=== PATIENT | female | born 1940 | race Caucasian/White ===

== ENCOUNTER 2017-05-24 23:01 | Inpatient (IN) | payer MEDICARE ==
[2017-05-24] MEDS ORDERED: Pantoprazole 40 MG VIAL ONE (23:30)
[2017-05-24] MEDS ORDERED: Ondansetron HCl/PF 4 MG/2 ML Vial ONE (23:30)
[2017-05-24 23:34] LABS: #Basophils 0.1 thou/uL (0.0-0.2); #Lymphocytes 1.3 thou/uL (1.20-3.40); #Monocytes 0.6 thou/uL (0.11-0.59); #Neutrophils 7.3 thou/uL (1.40-6.50); %Eosinophils 0.4 % (0.0-10.0); %Lymphocytes 13.6 % (21.0-51.0); %Monocytes 6.4 % (0.0-10.0); %Neutrophils 78.6 % (42.0-75.0); Hemoglobin 15.9 g/dL (12.0-16.0); Mean Corpuscular HGB CONC 34.3 g/dL (32.0-36.0); Mean Corpuscular Hemoglobin 31.4 pg (27.0-31.0); Mean Corpuscular Volume 91.7 fl (81.0-99.0); Mean Platelet Volume 11.3 fL (7.4-10.4); Platelet Count 173 thou/uL (130-400); RBC Distribution Width 12.2 % (11.5-14.5); Red Blood Cell (RBC) Count 5.07 mill/uL (4.20-5.40); White Blood Cell (WBC) Count 9.3 thou/uL (4.8-10.8)
[2017-05-24 23:47] LABS: ALT (SGPT) 18 U/L (8-55); AST (SGOT) 21 U/L (5-34); Albumin 4.4 g/dL (3.4-4.8); Alkaline Phosphatase 97 U/L (40-150); Anion Gap 17 mmol/L (10-20); BUN (Urea Nitrogen) 21 mg/dL (9.8-20.1); Bilirubin, Total 0.5 mg/dL (0.2-1.2); CK (CPK) 79 U/L (29-168); Calc. Creatinine Clearance 0 mL/min (70-130); Calcium 9.9 mg/dL (7.8-10.44); Carbon Dioxide 24 mmol/L (23-31); Chloride 106 mmol/L (98-107); Estimated GFR-MDRD 61; Glucose 136 mg/dL (83-110); Lipase 23 U/L (8-78); Potassium 4.7 mmol/L (3.5-5.1); Protein, Total 7.4 g/dL (6.0-8.3); Sodium 142 mmol/L (136-145)
[2017-05-24 23:50] LABS: CKMB 1.9 ng/mL (0-6.6); Troponin I Less than 0.010 ng/mL (< 0.028)
[2017-05-25] MEDS ORDERED: Morphine 10 MG/ML VIAL ONE (00:26)
[2017-05-25 01:30] LABS: Bilirubin Negative (Negative); Blood, Urine Negative (Negative); Clarity Slightly Cloudy (Clear); Glucose, Urine (Dipstick) Negative (Negative); Leukocyte Negative (Negative); Nitrite Negative (Negative); Protein, Urine (Dipstick) 30 mg/dL (Neg-Trace)
[2017-05-25 01:36] LABS: Bacteria/HPF Rare-Few HPF (None Seen); Hyaline Casts/LPF NONE SEEN LPF (0-3 Hyaline); RBC/HPF 0-3 HPF (0-3); Squamous Epithelial 0-3 HPF (0-3); WBC/HPF 0-3 HPF (0-3)
[2017-05-25] MEDS ORDERED: Ondansetron HCl/PF 4 MG/2 ML Vial IVP PRN ×2 (03:52→15:57)
[2017-05-25] MEDS ORDERED: Ondansetron ODT 4 MG TAB SL PRN (03:52)
[2017-05-25] MEDS ORDERED: Dextrose 5 %-0.45 % NaCl 1,000 ML IV SCH (04:00)
[2017-05-25 06:45] VITALS: BMI 23.5
--- NOTE | 2017-05-25 08:09 | CT ---
PRELIMINARY REPORT/[facility]/EMERGENCY AFTER HOURS PROCEDURE: EXAM: CT Abdomen and Pelvis With Intravenous Contrast 05/25/2017 at 0108 CLINICAL HISTORY: 77 years old, female; Abdominal pain; stomach pain for the past x 3 hours. nausea, and normal bm's. a bdominal distention. TECHNIQUE: Axial computed tomography images of the abdomen and pelvis with intravenous contrast. Coronal reforma tted images were created and reviewed. CONTRAST: 85 mL of [id number] administered intravenously. COMPARISON: None. FINDINGS: Lung bases: Lower lungs show mild, subsegmental atelectasis and/or scar. Partially-imaged, right middle lobe medial segment atelectasis. Mediastinum: Possible, small, hiatal hernia. ABDOMEN: Liver: Unremarkable. Gallbladder and bile ducts: Unremarkable. Pancreas: Unremarkable. Spleen: Unremarkable. Adrenals: Unremarkable. Kidneys and ureters: Unremarkable. Stomach and bowel: Stomach is moderately distended. Multiple, gas- and fluid-filled, moderately-dilated, small bowel loops in lower abdomen/pelvis with a insurance sales representative small bowel measuring 3.5 cm diameter (axial series , image 46). Nondilated large bowel. Multiple diverticula in sigmoid colon without evidence of inflammation. Appendix: No findings to suggest acute appendicitis. PELVIS: Bladder: Unremarkable. Reproductive: Anteverted uterus. ABDOMEN and PELVIS: Intraperitoneal space: Mild free fluid in perihepatic right subphrenic space. No free air. Bones/joints: Moderate levoscoliosis of lumbar spine. Soft tissues: Multiple surgical clips in right lower anterior abdominal wall. Vasculature: Moderate aortoiliofemoral atherosclerotic calcifications. Multiple, small, round, bilateral, inferior, pelvic calcifications likely represent phleboliths. Sple claude hilar, peripherally-calcified, ovoid lesion measuring about 11 x 9 x 6 mm likely representing spl enic artery aneurysm. Lymph nodes: Unremarkable. IMPRESSION: 1. Multiple, gas- and fluid-filled, moderately-dilated, small bowel loops in lower abdomen/pelvis. Th is likely represents midlevel small bowel obstruction. 2. Colon diverticular disease without evidence of diverticulitis. 3. Possible, small, hiatal hernia. 4. Mild free fluid in perihepatic right subphrenic space. 5. 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 This Report Contains Findings That May Be Critical To Patient Care. The findings were verbally commun icated via telephone conference with Dr. Hamlet Ellis at 3:11 AM EDT on 05/25/2017. The findings were ack nowledged and understood. Thank you for allowing us to participate in the care of your patient. Dictated and Authenticated by: Archie Brown MD 05/25/2017 2:23 AM Central Time ([place] & [place]) FINAL REPORT CT ABDOMEN AND PELVIS WITH IV AND ORAL CONTRAST: Date: 05/25/17 FINDINGS/IMPRESSION: I agree with the preliminary report given by Dr. Archie Brown of [facility]. POS: [facility]
[2017-05-25] MEDS ORDERED: PROVENTIL INHALER 6.7 G (200 INHALATIONS) INH PRN (09:34)
[2017-05-25 10:07] LABS: Hemoglobin A1c 5.3 % (4.0-6.0)
--- NOTE | 2017-05-25 10:36 | CON ---
DATE OF CONSULTATION: 05/25/2017 REASON FOR CONSULT: Small-bowel obstruction. HISTORY OF PRESENT ILLNESS: Ms. Hooper is a 77-year-old woman who presented to the [facility] ER with abdominal pain and nausea. CT at the [facility] ER showed evidence of small-bowel o bstruction and she was sent to [place] for further management. An NG tube was placed in the [facility] ER and the patient's pain and nausea has resolved since that time. She does not thi nk she is passing gas since being in the hospital, but the pain in her upper abdomen has resolved. S he had been having normal bowel movements and passing gas normally prior to onset of her pain yesterd ay. She states that if she has had similar episodes in the past they have been mild. PAST MEDICAL HISTORY: Asthma/COPD with ongoing tobacco abuse. PAST SURGICAL HISTORY: Open appendectomy many years ago. ALLERGIES: She reports an adverse drug reaction to LIDOCAINE WITH EPINEPHRINE. OUTPATIENT MEDICATIONS: Albuterol inhaler, but no steroids for her asthma. She also takes an aspiri n daily. 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 REVIEW OF SYSTEMS: Ten system review of systems is negative except per HPI. PHYSICAL EXAMINATION: VITAL SIGNS: The patient has been afebrile since her admission. Heart rate is in the 70s, respirati ons 20, 91-93% saturated on room air, blood pressure mildly elevated at 142/70. GENERAL: Reveals an elderly woman in no acute distress. She does not appear flushed or toxic. She is not jaundiced or icteric. She appears to be breathing easily. HEENT: Unremarkable. NECK: Supple, without lymphadenopathy or thyroid nodules. HEART: Regular in its rate and rhythm without murmurs, rubs or gallops. LUNGS: Have diffuse wheezing bilaterally with some musical rhonchi. ABDOMEN: Soft, mildly distended, although the patient states that she feels like she is at her basel ine. Bowel sounds are somewhat hypoactive. She is mildly tender to palpation in the lower abdomen, greater than the upper abdomen, but does not exhibit any rigidity, rebound or guarding. No palpable masses or hernias. Her right lower quadrant incision is well healed. EXTREMITIES: Warm and well perfused without edema. NEUROLOGIC: No focal deficits. PSYCHIATRIC: Alert, oriented, and appropriate. LABORATORY AND X-RAY FINDINGS: White count was normal. Hematocrit 46.5, platelets 173. Electrolyte s were unremarkable. BUN was 21 and creatinine 0.89. LFTs normal. UA showed trace ketones and 30 p rotein, but was otherwise unremarkable. CT images are reviewed and I agree with the written report. The patient has a bowel obstruction with the distal ileum decompressed without any other acute findi ngs. She did have some incidental findings of a possible splenic artery aneurysm, colon diverticula without evidence of diverticulitis and a possible small hiatal hernia. ASSESSMENT: Small-bowel obstruction with resolution of symptoms following placement of NG tube. I jakub valenzuela recommended a trial of conservative management for the patient. Her NG tube was flushed and is f unctioning. There is not very much output. According to the nurse that she had about 100 out in the ER and about 200 was in the canister today. It is nonbilious in color, so hopefully the obstruction is starting to resolve. I will go ahead and check an abdominal film to confirm that the NG tube is positioned correctly, but it does appear clinically to be in good position. Dr. Thakur is going to follow the patient over the weekend. If her symptoms appear to be resolving a small-bowel follow thr ough will be obtained Sunday or Sunday.
--- NOTE | 2017-05-25 11:55 | PDOC.EVN ---
Event Note - Event Note Event Note: H&P DICTATED #[id number]
--- NOTE | 2017-05-25 12:45 | HP ---
DATE OF ADMISSION: 05/25/2017 CHIEF COMPLAINT: Nausea. HISTORY OF PRESENT ILLNESS: This is a 77-year-old female who states that over the last 4 days she was having worsening abdominal cramping and nausea. She states that she had a CT scan done at [facility] and was found to have an SBO, sent to the hospital for further management and care. The patient had an NG tube placed and currently states that she is feeling a little bit better; however, still has nausea. The patient states that she has not had a bowel movement or passed gas in the last 2-3 days either. States that her only abdominal surgery was an appendectomy, a few years ago. The patient otherwise denies any diarrhea, fevers, chills, shortness of breath or chest pains. The patient states there are no alleviating or aggravating factors. The patient denies any other associated symptoms or complaint. The patient was seen and examined. All questions answered. ALLERGIES: LIDOCAINE. PAST MEDICAL HISTORY: Asthma, COPD, smoking history. PAST SURGICAL HISTORY: Open appendectomy. SOCIAL HISTORY: The patient smokes about half a pack to a pack a day since the age of 16, so a [id number] smoking history. Social drinker. FAMILY HISTORY: She states that there is hypertension and diabetes in both sides of her family. REVIEW OF SYSTEMS: Twelve point review of systems performed. Pertinent positives in the HPI, otherwise negative. PHYSICAL EXAMINATION: VITAL SIGNS: Blood pressure 153/68, temperature of 98.8, respiratory rate of 20 , heart rate of 84, pulse ox of 93% on room air. GENERAL: The patient lying in bed comfortably. HEENT: NG tube in place. Normocephalic, atraumatic. Pupils equal, round, react to light and accommodation. NECK: Supple, mobile, nontender thyroid. No lymphadenopathy appreciated. LUNGS: Clear to auscultation bilaterally. No wheezing noted. CARDIOVASCULAR: Regular rate and rhythm. S1, S2, no murmurs, rubs or gallops appreciated. ABDOMEN: Distant slow bowel sounds heard, soft, nontender, no rebound or guarding. EXTREMITIES: 2+ peripheral pulses. No edema noted. NEUROLOGIC: Cranial nerves II through XII intact. No loss of sensory function. LABORATORY DATA: CBC within normal limits. BMP within normal limits. Hemoglobin A1c at 5.3. Urinalysis shows trace protein and trace ketones. ASSESSMENT AND PLAN: 1. Small-bowel obstruction. 2. Hypertension. 3. Asymptomatic bacteriuria. 4. Asthma/chronic obstructive pulmonary disease. 5. Substance abuse, tobacco. PLAN: At this point in time, we will continue with current plan of care, NG tube in place to intermittent suction. Surgery Team following. Repeat KUB in a.m. Vital signs stable. Pain control and continue with bowel rest. Case and plan discussed with patient at length. She understands and agrees with this plan. STEPHANIE
--- NOTE | 2017-05-25 13:59 | RAD ---
RADIOGRAPH ABDOMEN 1 VIEW: DATE: 05/25/17. TIME: 12/:27 a.m. HISTORY: A 77-year-old female status post NG tube placement for small bowel obstruction. COMPARISON: None. FINDINGS: As requested, this report was called STAT to nurse Annette Campbell at 1:19 p.m. on 05/25/17. There is an NG tube with side port at the region of the esophagogastric junction, and distal tip over lying the expected location of the cardia of the stomach. No air-filled dilated small bowel loops ar e visualized (probably because they are fluid-filled, with little gas, despite being dilated, as demo nstrated on the recent CT). There is a normal amount of gas in the colon. IV contrast material is p resent in the nondistended bladder. IMPRESSION: Nasogastric tube distal tip in the proximal stomach. CODE CR POS: [facility]
[2017-05-25] MEDS ORDERED: Enalaprilat Dihydrate 1.25 MG/ML VIAL SLOW IVP PRN (16:01)
[2017-05-25] MEDS ORDERED: Morphine 5 MG/ML SYRINGE SLOW IVP PRN (16:04)
[2017-05-25] MEDS: Sodium Chloride 0.9% 1,000 ML IV SCH (20:00)
[2017-05-26 05:41] LABS: #Lymphocytes 1.6 thou/uL (1.20-3.40); #Monocytes 0.8 thou/uL (0.11-0.59); #Neutrophils 6.9 thou/uL (1.40-6.50); %Basophils 0.2 % (0.0-1.0); %Eosinophils 0.1 % (0.0-10.0); %Lymphocytes 16.9 % (21.0-51.0); %Monocytes 8.8 % (0.0-10.0); Hemoglobin 15.4 g/dL (12.0-16.0); Mean Corpuscular HGB CONC 31.8 g/dL (32.0-36.0); Mean Corpuscular Hemoglobin 31.2 pg (27.0-31.0); Mean Platelet Volume 9.8 fL (7.4-10.4); Platelet Count 162 thou/uL (130-400); RBC Distribution Width 12.5 % (11.5-14.5); Red Blood Cell (RBC) Count 4.92 mill/uL (4.20-5.40); White Blood Cell (WBC) Count 9.4 thou/uL (4.8-10.8)
[2017-05-26 06:01] LABS: Anion Gap 8 mmol/L (10-20); BUN (Urea Nitrogen) 20 mg/dL (9.8-20.1); Calc. Creatinine Clearance 50 mL/min (70-130); Calcium 8.9 mg/dL (7.8-10.44); Carbon Dioxide 31 mmol/L (23-31); Chloride 102 mmol/L (98-107); Estimated GFR-MDRD 70; Glucose 117 mg/dL (83-110); Potassium 3.8 mmol/L (3.5-5.1); Sodium 137 mmol/L (136-145)
[2017-05-26] MEDS: Sodium Chloride 0.9% 1,000 ML IV SCH ×2 (06:24→08:17)
--- NOTE | 2017-05-26 11:10 | PDOC.GSPN ---
Surgery Progress Note: Subj - Subjective Patient reports: no new complaints (No flatus or bowel movement but feels less distended) Surgery Progress Note: Obj - Vital signs Vital signs: Vital Signs - Most Recent Temp Pulse Resp BP Pulse Ox 98.8 F 82 20 117/70 92 L 05/26/17 08:15 05/26/17 08:15 05/26/17 08:15 05/26/17 07:35 05/26/17 08:15 - Physical Exam General: no distress Cardiovascular: regular rate and rhythm Respiratory: clear to auscultation Abdomen: soft, distended, tender (mildly diffusely) Surgery Progress Note: Results - Labs Result Diagrams: 05/26/17 05:23 05/26/17 05:23 Lab results: Laboratory Results - last 24 hr 05/26/17 05/26/17 05:23 05:23 WBC 9.4 RBC 4.92 Hgb 15.4 Hct 48.3 H MCV 98.0 MCH 31.2 H MCHC 31.8 L RDW 12.5 Plt Count 162 MPV 9.8 Neutrophils % 74.0 Lymphocytes % 16.9 L Monocytes % 8.8 Eosinophils % 0.1 Basophils % 0.2 Neutrophils # 6.9 H Lymphocytes # 1.6 Monocytes # 0.8 H Eosinophils # 0.0 Basophils # 0.0 Sodium 137 Potassium 3.8 Chloride 102 Carbon Dioxide 31 Anion Gap 8 L BUN 20 Creatinine 0.79 Estimated GFR (MDRD) 70 Glucose 117 H Calcium 8.9 Surgery Progress Note: A/P - Problem (1) Small bowel obstruction Current Visit: Yes Code(s): K56.609 - UNSP INTESTNL OBST, UNSP TO PARTIAL VERSUS COMPLETE OBST Status: Acute - Plan Plan: Plan one more day NG and NPO given that she is still distended. Tomorrow SBFT
--- NOTE | 2017-05-26 12:29 | RAD ---
ABDOMEN 1 VIEW: HISTORY: Small bowel obstruction. COMPARISON: Radiograph prior day. FINDINGS: Enteric tube tip is at gastric antrum. There is contrast within the bowel. No dilated air filled loops of large or small bowel. IMPRESSION: Enteric tube tip in the gastric antrum. POS: [facility]
--- NOTE | 2017-05-26 14:27 | PDOC.PN ---
- Subjective Encounter Start Date: 05/26/17 Encounter Start Time: 14:25 Patient seen and examined, no new issues per family, she slept well last night, NG tube still in, daughter states that it looks like she's not in as much distress as yesterday. No other issues, all questions answered. - Objective Vital Signs & Weight: Vital Signs (12 hours) Temp Pulse Resp BP Pulse Ox 05/26/17 11:00 98.1 F 80 16 136/71 93 L 05/26/17 08:15 98.8 F 82 20 92 L 05/26/17 07:35 98.8 F 82 20 117/70 92 L 05/26/17 03:12 98.8 F 83 16 145/58 H 92 L Weight Weight 120 lb 8 oz I&O: 05/25/17 05/26/17 05/27/17 06:59 06:59 06:59 Intake Total 93 900 Output Total 50 1200 Balance 43 -300 Result Diagrams: 05/26/17 05:23 05/26/17 05:23 Phys Exam - Physical Examination Constitutional: NAD HEENT: PERRLA, sclera anicteric, TM's clear NG tube in place Neck: no nodes, no JVD, supple Respiratory: no wheezing, no rales, no rhonchi Cardiovascular: RRR, no significant murmur, no rub Gastrointestinal: soft, non-tender, no distention Musculoskeletal: no edema, pulses present Dx/Plan (1) Small bowel obstruction Code(s): K56.609 - UNSP INTESTNL OBST, UNSP TO PARTIAL VERSUS COMPLETE OBST Status: Acute - Plan * continue with NG tube for now * surgery following * BP stable * labs in AM * case and plan d/w patient's daughter at [facility], she understands and agrees with this plan
[2017-05-27 06:13] LABS: Band 9 % (5-11); Hemoglobin 14.1 g/dL (12.0-16.0); Lymphocytes 14 % (21-51); MDiff Complete? YES; Mean Corpuscular HGB CONC 32.8 g/dL (32.0-36.0); Mean Corpuscular Hemoglobin 31.4 pg (27.0-31.0); Mean Corpuscular Volume 95.8 fl (81.0-99.0); Mean Platelet Volume 9.4 fL (7.4-10.4); Monocytes 10 % (0-10); Neutrophil 67 % (42-75); Platelet Count 140 thou/uL (130-400); RBC Distribution Width 12.4 % (11.5-14.5); White Blood Cell (WBC) Count 12.1 thou/uL (4.8-10.8)
[2017-05-27 06:16] LABS: Anion Gap 10 mmol/L (10-20); BUN (Urea Nitrogen) 21 mg/dL (9.8-20.1); Calc. Creatinine Clearance 58 mL/min (70-130); Calcium 8.7 mg/dL (7.8-10.44); Carbon Dioxide 26 mmol/L (23-31); Chloride 107 mmol/L (98-107); Estimated GFR-MDRD 83; Glucose 100 mg/dL (83-110); Potassium 3.9 mmol/L (3.5-5.1); Sodium 139 mmol/L (136-145)
--- NOTE | 2017-05-27 08:13 | PRG ---
DATE OF SERVICE: 05/27/2017 SUBJECTIVE: Ms. Hooper is doing well. She is still passing small amount of gas, has not had a riley l movement. OBJECTIVE: VITAL SIGNS: She is afebrile. Vital signs are stable. ABDOMEN: Soft, minimally diffusely tender without guarding or rebound. She has occasional bowel alberto nds. ASSESSMENT: Small-bowel obstruction. PLAN: Gastrografin small bowel follow through today. If it shows complete obstruction, she will nee d operation. If shows passage to colon, we can remove the NG tube and start clear liquids.
[2017-05-27] MEDS: Sodium Chloride 0.9% 1,000 ML IV SCH ×2 (09:08→23:58)
[2017-05-27] MEDS ORDERED: MD-Gastroview 120 ML BOT ONE (09:24)
--- NOTE | 2017-05-27 11:04 | PDOC.PN ---
- Subjective Encounter Start Date: 05/27/17 Encounter Start Time: 11:03 Patient seen and examined, no new issues or concerns, family at bedside, all questions answered. - Objective Vital Signs & Weight: Vital Signs (12 hours) Temp Pulse Resp BP Pulse Ox 05/27/17 07:56 97.9 F 88 16 151/72 H 92 L 05/27/17 04:00 98.3 F 88 16 132/71 91 L 05/27/17 00:22 98.9 F 89 16 147/68 H 92 L Weight Weight 120 lb 8 oz I&O: 05/26/17 05/27/17 05/28/17 06:59 06:59 06:59 Intake Total 900 1800 Output Total 1200 1650 Balance -300 150 Result Diagrams: 05/27/17 05:28 05/27/17 05:28 Phys Exam - Physical Examination Constitutional: NAD HEENT: PERRLA, sclera anicteric NG tube in place Neck: no nodes, no JVD, supple Respiratory: no wheezing, no rales, no rhonchi Cardiovascular: RRR, no significant murmur, no rub Gastrointestinal: soft, non-tender, no distention Musculoskeletal: no edema, pulses present Dx/Plan (1) Small bowel obstruction Code(s): K56.609 - UNSP INTESTNL OBST, UNSP TO PARTIAL VERSUS COMPLETE OBST Status: Acute - Plan * SBFT today, depending on result either NG tube to be removed or possible surgical intervention * continue current plan of care otherwise, no changes for now * surgery also following * case and plan d/w patient and family at length, they undrestand and agree with this plan
--- NOTE | 2017-05-27 13:32 | RAD ---
SMALL BOWEL FOLLOW THROUGH: HISTORY: Small bowel obstruction. FINDINGS: Gastrografin was given through the enteric tube. Contrast was seen passing through the large and sma ll bowel after 1 hour. IMPRESSION: No evidence of high-grade small bowel obstruction. POS: [facility]
[2017-05-28 06:01] LABS: #Lymphocytes 2.3 thou/uL (1.20-3.40); %Basophils 0.4 % (0.0-1.0); %Eosinophils 0.2 % (0.0-10.0); %Lymphocytes 22.4 % (21.0-51.0); Hemoglobin 13.3 g/dL (12.0-16.0); Mean Corpuscular HGB CONC 32.2 g/dL (32.0-36.0); Mean Corpuscular Hemoglobin 31.8 pg (27.0-31.0); Mean Corpuscular Volume 98.7 fl (81.0-99.0); Mean Platelet Volume 9.9 fL (7.4-10.4); Platelet Count 149 thou/uL (130-400); RBC Distribution Width 12.3 % (11.5-14.5); Red Blood Cell (RBC) Count 4.19 mill/uL (4.20-5.40); White Blood Cell (WBC) Count 10.5 thou/uL (4.8-10.8)
[2017-05-28 06:26] LABS: Anion Gap 11 mmol/L (10-20); BUN (Urea Nitrogen) 28 mg/dL (9.8-20.1); Calc. Creatinine Clearance 53 mL/min (70-130); Calcium 9.2 mg/dL (7.8-10.44); Carbon Dioxide 26 mmol/L (23-31); Chloride 112 mmol/L (98-107); Estimated GFR-MDRD 76; Glucose 96 mg/dL (83-110); Sodium 145 mmol/L (136-145)
[2017-05-28] MEDS: Sodium Chloride 0.9% 1,000 ML IV SCH ×2 (07:00→15:07)
[2017-05-28 08:47] VITALS: BP 127/66
--- NOTE | 2017-05-28 09:33 | PRG ---
DATE OF SERVICE: 05/28/2017 SUBJECTIVE: Ms. Hooper is doing well with her NG tube out. PHYSICAL EXAMINATION: She is afebrile. Vital signs are stable. Her abdomen is soft with active bow el sounds. She had multiple bowel movements yesterday. Gastrografin small bowel follow through olga lidia blake. ASSESSMENT: Small bowel obstruction, resolved. PLAN: Advance to full liquids if doing well with that. She can likely be discharged home tomorrow.
[2017-05-28 14:32] VITALS: TEMP 98.4
--- NOTE | 2017-05-28 14:54 | PDOC.PN ---
- Subjective Encounter Start Date: 05/28/17 Encounter Start Time: 09:20 Pt seen for followup re: bowel obstruction. Tolerating fluid diet. Denies abdo pain, nausea or vomiting. - Objective MAR Reviewed: Yes Vital Signs & Weight: Vital Signs (12 hours) Temp Pulse Resp BP Pulse Ox 05/28/17 12:39 98.4 F 77 16 90 L 05/28/17 07:35 98.7 F 72 16 127/66 94 L 05/28/17 04:55 99.1 F 72 94 H 123/65 16 L Weight Weight 120 lb 8 oz I&O: 05/27/17 05/28/17 05/29/17 06:59 06:59 06:59 Intake Total 1800 2820 Output Total 1650 600 Balance 150 2220 Result Diagrams: 05/28/17 05:46 05/28/17 05:46 Phys Exam - Physical Examination Constitutional: NAD HEENT: sclera anicteric Neck: supple Respiratory: clear to auscultation bilateral Cardiovascular: RRR Gastrointestinal: soft, positive bowel sounds Neurological: moves all 4 limbs Psychiatric: normal affect Skin: no rash Dx/Plan (1) Small bowel obstruction Code(s): K56.609 - UNSP INTESTNL OBST, UNSP TO PARTIAL VERSUS COMPLETE OBST Status: Acute Comment: tolerating fluid diet, NG tube is out (2) Asthma Code(s): J45.909 - UNSPECIFIED ASTHMA, UNCOMPLICATED Status: Chronic Comment : stable (3) COPD (chronic obstructive pulmonary disease) Status: Chronic Comment: stable (4) Tobacco abuse Code(s): Z72.0 - TOBACCO USE Status: Chronic Comment: Pt counseled re: tobacco cessation - Plan * . Review of Systems - Review of Systems Respiratory: negative: Cough, Shortness of Breath, Hemoptysis, SOB with Excertion, Pleuritic Pain, Wheezing Cardiovascular: negative: chest pain, palpitations, orthopnea, paroxysmal nocturnal dyspnea, edema, light headedness - Medications/Allergies Allergies/Adverse Reactions: Allergies Allergy/AdvReac Type Severity Reaction Status Date / Time lidocaine Allergy Severe Verified 05/25/17 05:24 epinephrine Allergy Verified 05/25/17 03:51 Medications: Current Medications Albuterol Sulfate (Proventil Hfa) 2 puff INH Q4H PRN PRN Reason: SOB &/or Wheezing Enalaprilat (Vasotec) 1.25 mg SLOW IVP Q6HR PRN PRN Reason: FOR SBP > 160mmHg Sodium Chloride (Normal Saline 0.9%) 1,000 mls @ 75 mls/hr IV .[id number] BRAD Last Admin: 05/28/17 07:00 Dose: 1,000 mls Morphine Sulfate (Morphine) 2 mg SLOW IVP Q4H PRN PRN Reason: pain Ondansetron HCl (Zofran) 4 mg IVP Q6H PRN PRN Reason: Nausea/Vomiting
--- NOTE | 2017-05-29 13:15 | DIS ---
DATE OF ADMISSION: 05/26/2017 DATE OF DISCHARGE: 05/28/2017 PRIMARY CARE PHYSICIAN: Dr. Donovan Renteria. DISCHARGE DIAGNOSIS: Small-bowel obstruction. HOSPITAL COURSE: Ms. Hooper is a pleasant 77-year-old lady who was admitted to [facility] for small-bowel obstruction on 05/25/2017. A CT scan of the abdomen and pelvis showed multiple gas and fluid filled moderately dilated small bowel loops and lower abdomen/pelvis, represen ting midlevel small-bowel obstruction. She also had a possible splenic artery aneurysm. She was seen by General Surgery Service. She had a nasogastric tube placed. Small bowel follow thro ugh study on 05/27/2017 did not show any evidence of high grade small-bowel obstruction. She was sta rted on diet and was tolerating diet. She was discharged home by General Surgery service on 05/29/19 18.
== END 2017-05-28 15:50 | disposition home or self-care (01) | DRG 390 ==
LOC: SCSER 23:01 → 3SE 05-25 02:30 → SURG B 05-25 21:46
PROVIDERS: ADMIT Family Medicine; ATTEND Family Medicine
DX: K56.600 Partial intestinal obstruction, unspecified as to cause (principal); I72.8 Aneurysm of other specified arteries; J44.9 Chronic obstructive pulmonary disease, unspecified; F17.210 Nicotine dependence, cigarettes, uncomplicated; I10 Essential (primary) hypertension; R82.71 Bacteriuria
CPT/HCPCS: 36415; 74018; 74177; 74250; 80048; 80053; 81003; 81015; 82550; 82553; 83036; 83605; 83690; 84484; 85025; 93005; 96372; 96374; 96375; A4216; C9113; J2270; J2405